=== PATIENT | female | born 1980 | race Caucasian/White ===

== ENCOUNTER → 2021-01-09 | Outpatient (CLI) | payer OTHER ==
[2021-01-09 13:45] LABS: BASOPHILS ABSOLUTE AUTO 0.05 K/mm3 (0.00-0.23); BASOPHILS PERCENT AUTO 1 % (0-2); EOSINOPHILS ABSOLUTE AUTO 0.35 K/mm3 (0.00-0.68); EOSINOPHILS PERCENT AUTO 5 % (0-6); Hematocrit 41.2 % (33.0-51.0); Hemoglobin 13.8 g/dL (11.5-16.0); IMMATURE GRAN ABSOLUTE AUTO 0.01 K/mm3 (0.00-0.10); IMMATURE GRAN PERCENT AUTO 0 % (0-1); LYMPHOCYTES ABSOLUTE AUTO 2.57 K/mm3 (0.84-5.20); LYMPHOCYTES PERCENT AUTO 37 % (21-46); MONOCYTES ABSOLUTE AUTO 0.46 K/mm3 (0.16-1.47); MONOCYTES PERCENT AUTO 7 % (4-13); Mean Corpuscular HGB 29.6 pg (26.0-34.0); Mean Corpuscular HGB Conc 33.5 g/dL (31.5-36.5); Mean Corpuscular Volume 88 fL (80-100); Mean Platelet Volume 9.9 fL (9.1-12.4); NEUTROPHILS ABSOLUTE AUTO 3.61 K/mm3 (1.96-9.15); NEUTROPHILS PERCENT AUTO 51 % (41-73); Platelet Count 293 K/mm3 (150-400); RDW Coefficient Variation 12.5 % (11.7-14.2); RDW Standard Deviation 40.6 fL (35.1-46.3); Red Blood Cell Count 4.67 M/mm3 (3.80-5.20); White Blood Cell Count 7.05 K/mm3 (4.00-11.30)
[2021-01-09 14:08] LABS: Alanine Aminotransfer (ALT/SGP 23 U/L (12-78); Albumin, Blood 3.6 g/dL (3.4-5.0); Albumin/Globulin Ratio 0.9 (0.8-1.8); Alk Phos 83 U/L (50-136); Anion Gap 7 mmol/L (6-16); Aspartate Aminotrans (AST/SGOT 18 U/L (12-37); Bilirubin, Total 0.4 mg/dL (0.1-1.0); Blood Urea Nitrogen 8 mg/dL (8-24); Bun/Creatinine Ratio 10.1 (12.0-20.0); CO2, Blood 26 mmol/L (21-32); Calcium, Blood 8.7 mg/dL (8.5-10.1); Chloride, Blood 108 mmol/L (98-108); Creatinine, Blood 0.79 mg/dL (0.40-1.00); Globulin, Blood 3.8 g/dL (2.2-4.0); Glomerular Filtration Rate >60 (60-); Glucose, Blood 87 mg/dL (70-99); Potassium, Blood 4.1 mmol/L (3.5-5.5); Sodium, Blood 141 mmol/L (136-145); Total Protein, Blood 7.4 g/dL (6.4-8.2)
[2021-01-09 14:33] LABS: CHOL/HDL RATIO 2.3; Cholesterol 159 mg/dL (50-200); HDL Cholesterol 68 mg/dL (>39); LDL/HDL RATIO 1.2; Low Density Lipoprotein Chol 84 mg/dL (0-110); Triglycerides 37 mg/dL (30-140); Very Low Density Lipoprot Chol 7 mg/dL (6-28)
== END ==
LOC: LAB 08:30 → LAB SHORT 08:30
PROVIDERS: Nurse Practitioner
DX: Z13.6 Encounter for screening for cardiovascular disorders (principal); E03.9 Hypothyroidism, unspecified
CPT/HCPCS: 80053; 80061; 84443; 85025

== ENCOUNTER → 2022-04-25 | Outpatient (CLI) | payer SELFPAY | END | disposition home or self-care (01) | LOC: LAB 16:45 → LAB SHORT 16:45 | DX: R19.7 Diarrhea, unspecified (principal) | CPT/HCPCS: 85651 ==

== ENCOUNTER → 2022-05-20 | Outpatient (CLI) | payer BC | END | disposition home or self-care (01) | LOC: LAB 17:36 → LAB SHORT 17:36 | PROVIDERS: Hospitalist | DX: Z12.4 Encounter for screening for malignant neoplasm of cervix (principal) | CPT/HCPCS: G0145 ==

== ENCOUNTER → 2022-11-08 | Outpatient (CLI) | payer BC ==
[~2022-11-08] MED LIST: OMEP20ER; Synthroid200 MCG; [UNRECOGNIZED DRUG - OTHER]
[2022-11-08 19:01] LABS: Campylobacter Sp Not Detected (NOT DETECT); Enteroaggregative E. coli-EAEC Not Detected (NOT DETECT); Enterotoxigenic E. coli-ETEC Not Detected (NOT DETECT); Plesiomonas Shigelloides Not Detected (NOT DETECT); Salmonella Sp Not Detected (NOT DETECT); Vibrio Cholerae Not Detected (NOT DETECT); Vibrio Sp Not Detected (NOT DETECT); Yersinia Enterocolitica Not Detected (NOT DETECT)
[2022-11-08 19:02] LABS: Adenovirus F 40/41 Not Detected (NOT DETECT); Astrovirus Not Detected (NOT DETECT); Cryptosporidium Not Detected (NOT DETECT); Cyclospora Cayetanensis Not Detected (NOT DETECT); E. Coli O157 Not Detected (NOT DETECT); Entamoeba Histolytica Not Detected (NOT DETECT); Enteropathogenic E. coli-EPEC Not Detected (NOT DETECT); Giardia Lamblia Not Detected (NOT DETECT); Norovirus GI/GII Not Detected (NOT DETECT); Rotavirus A Not Detected (NOT DETECT); Sapovirus Not Detected (NOT DETECT); Shiga Toxin-prod E. coli-STEC Not Detected (NOT DETECT); Shigella/Enteroin E. coli-EIEC Not Detected (NOT DETECT)
== END | disposition home or self-care (01) ==
LOC: LAB 09:00 → LAB SHORT 09:00
PROVIDERS: Physician Assistant Medical
DX: R19.7 Diarrhea, unspecified (principal)
CPT/HCPCS: 87507

== ENCOUNTER → 2023-08-07 | Outpatient (CLI) | payer BC ==
[2023-08-07 15:07] LABS: CHOL/HDL RATIO 2.9; Cholesterol 196 mg/dL (50-200); Free Thyroxine 1.09 ng/dL (0.70-1.60); HDL Cholesterol 68 mg/dL (>39); LDL/HDL RATIO 1.7; Low Density Lipoprotein Chol 116 mg/dL (0-110); Triglycerides 58 mg/dL (30-160); Very Low Density Lipoprot Chol 11 mg/dL (6-32)
== END | disposition home or self-care (01) ==
LOC: LAB SHORT 08:44
PROVIDERS: Hospitalist
DX: Z13.220 Encounter for screening for lipoid disorders (principal); E03.9 Hypothyroidism, unspecified
CPT/HCPCS: 80061; 84439; 84443

== ENCOUNTER 2024-06-27 06:55 | Observation (INO) | payer BC ==
[2024-06-27] VITALS (11 sets, daily range): BP systolic 110–144; BP diastolic 71–100
[~2024-06-27] VITALS: Ht 170.2 cm; Wt 96.1 kg
[2024-06-27] MEDS ORDERED: Ondansetron HCl 2 MG / ML 2ML Vial IV ONE (07:15)
[2024-06-27] MEDS ORDERED: Ketorolac Tromethamine 30mg Vial IV ONE (07:15)
[2024-06-27 07:44] LABS: BASOPHILS ABSOLUTE AUTO 0.05 K/mm3 (0.00-0.23); BASOPHILS PERCENT AUTO 1 % (0-2); EOSINOPHILS ABSOLUTE AUTO 0.45 K/mm3 (0.00-0.68); EOSINOPHILS PERCENT AUTO 4 % (0-6); Hematocrit 39.6 % (33.0-51.0); Hemoglobin 13.8 g/dL (11.5-16.0); IMMATURE GRAN ABSOLUTE AUTO 0.03 K/mm3 (0.00-0.10); IMMATURE GRAN PERCENT AUTO 0 % (0-1); LYMPHOCYTES ABSOLUTE AUTO 2.87 K/mm3 (0.84-5.20); LYMPHOCYTES PERCENT AUTO 28 % (21-46); MONOCYTES PERCENT AUTO 5 % (4-13); Mean Corpuscular HGB 29.6 pg (26.0-34.0); Mean Corpuscular HGB Conc 34.8 g/dL (31.5-36.5); Mean Corpuscular Volume 85 fL (80-100); Mean Platelet Volume 9.2 fL (9.1-12.4); NEUTROPHILS ABSOLUTE AUTO 6.27 K/mm3 (1.96-9.15); NEUTROPHILS PERCENT AUTO 62 % (41-73); Platelet Count 277 K/mm3 (150-400); RDW Coefficient Variation 13.1 % (11.7-14.2); RDW Standard Deviation 40.3 fL (35.1-46.3); Red Blood Cell Count 4.66 M/mm3 (3.80-5.20); White Blood Cell Count 10.17 K/mm3 (4.00-11.30)
[2024-06-27 08:04] LABS: Albumin, Blood 3.6 g/dL (3.4-5.0); Albumin/Globulin Ratio 0.9 (0.8-1.8); Bilirubin, Total 0.3 mg/dL (0.1-1.0); Calcium, Blood 9.2 mg/dL (8.5-10.1); Creatinine, Blood 0.67 mg/dL (0.40-1.00); Globulin, Blood 3.8 g/dL (2.2-4.0); Total Protein, Blood 7.4 g/dL (6.4-8.2)
[2024-06-27 08:32] LABS: Source, Urine Clean Catch
[2024-06-27] MEDS ORDERED: MetroNIDAZOLE 500MG/NS 100 ml 100 ML IV ONE (08:35)
[2024-06-27] MEDS ORDERED: NS 1,000 ML IV SCH (08:35)
[2024-06-27] MEDS ORDERED: CefTRIAXone Sodium 1,000 MG in NS 100 ML IV ONE (08:35)
[2024-06-27 08:39] LABS: Appearance, Urine Clear (Clear); Bilirubin, Urine Neg (Neg); Blood, Urine 1+ (Neg); Color, Urine Yellow (P-Yellow); Glucose Qualitative, Urine Neg (Neg); Ketones, Urine Neg (Neg); Leukocyte Esterase, Urine Neg (Neg); Nitrite, Urine Neg (Neg); Protein, Urine Neg (Neg); Urobilinogen, Urine NORM (Normal)
[2024-06-27 08:52] LABS: Bacteria Few /hpf; Mucus Light (0-Heavy); Red Blood Cells, Urine 0-2 /hpf (0-2); Squamous Epithelial Cells Mod /hpf (Few); White Blood Cells, Urine 0-2 /hpf (0-5)
--- NOTE | 2024-06-27 15:28 | NUR ---
ARRIVAL TO 215 PT BROUGHT UP TO ROOM 215 FROM THE ER AMBULATORY. PT STILL WEARING REGULAR CLOTHES, DISCUSSED PREP FOR SURGERY AND PROVIDED HER A GOWN TO CHANGE INTO, BASELINE VITALS OBTAINED, CHACHO CONSENT SIGNED, DISCUSSED PLAN OF CARE WITH SURGERY AND RECOVERY. PT REPORTS WANTING TO GO HOME TODAY IF AT ALL POSSIBLE. PT ALSO REPORTS HAVING A PREFERENCE FOR SURGICAL GLUE TO CLOSE OVER HER LAP SITES POST OP.
[2024-06-27] MEDS ORDERED: CeFAZolin Sodium 2,000 MG in NS 100 ML IV SCH (16:35)
--- NOTE | 2024-06-27 16:56 | NUR ---
BETA HCG TEST NOT DONE IN ER, DISCUSED THIS WITH THE PATIENT, COLLECTED URINE SAMPLE AND SENT TO LAB FOR TESTING.
[2024-06-27] MEDS ORDERED: Bupivacaine 0.5% HCl 5 MG/ML 30MLVIAL ONE (17:36)
--- NOTE | 2024-06-27 17:39 | NUR ---
PT TRANSFERED TO PACU VIA GURNEY FROM RM 215 AT 1725. PLEASANT & COOPERATIVE. REFUSED WARM BLANKET OFFER. DENIES PAIN/NAUSEA. AFEBRILE/VSS. SURICAL PACK COMPLETE. PAS SLEEVES/SURGICAL HAT/BP CUFF PLACED. LR AT TKO. NO COMPLAINTS. RESTING QUIETLY.
[2024-06-27] MEDS ORDERED: FentaNYL Citrate 50 MCG/ML 2 ML Injection ONE (17:41)
[2024-06-27] MEDS ORDERED: propofoL 20 ML IV ONE (17:41)
--- NOTE | 2024-06-27 17:43 | NUR ---
1730: LISSETTE BAHENA AT [facility] SPEAKING TO PT. CONSENTS WERE SIGNED. APPEARS COMFORTABLE AND RELAXED. NO COMPLAINTS AT THIS TIME.
--- NOTE | 2024-06-27 17:44 | NUR ---
1740: PT TO OR 2 VIA MARK IN STABLE CONDITION.
[2024-06-27] MEDS ORDERED: Dexamethasone Sod Phos 10 MG/ML 1ML VIAL ONE (17:47)
[2024-06-27] MEDS ORDERED: Ondansetron HCl 2 MG / ML 2ML Vial ONE (17:47)
[2024-06-27] MEDS ORDERED: Ketorolac Tromethamine 30mg Vial ONE ×2 (17:48→17:49)
[2024-06-27] MEDS ORDERED: DiphenhydrAMINE HCl 50 MG/ML 1ML Vial ONE (17:48)
[2024-06-27] MEDS ORDERED: FentaNYL Citrate 50 MCG/ML 2 ML Injection IV PRN ×2 (18:00→18:05)
[2024-06-27] MEDS ORDERED: HYDROmorphone HCl/Pf 1MG SYR IV PRN (18:00)
[2024-06-27] MEDS ORDERED: Morphine Sulfate 4 MG/1 ML Injection IV PRN (18:05)
[2024-06-27] MEDS ORDERED: Ondansetron HCl 2 MG / ML 2ML Vial IV PRN (18:05)
[2024-06-27] MEDS ORDERED: Albuterol 2.5 MG/3 ML VIAL INH PRN (18:05)
[2024-06-27] MEDS ORDERED: Lidocaine HCL 1% 10 ML MDV XX ONE (18:10)
[2024-06-27] MEDS ORDERED: Midazolam HCl 1MG / ML 2ML Vial IV SCH (18:10)
[2024-06-27] MEDS ORDERED: Sugammadex Sodium 200 MG/2ML SDV (100 MG/ML) ONE (18:15)
--- NOTE | 2024-06-27 19:17 | NUR ---
SHIFT SUMMARY ADMITTED FOR ACUTE HUNTER, A/OX4, VSS, NO PO GIVEN DUE TO SURGERY, TAKEN TO SURGERY AND SHE WAS IN PACU AT THE END OF THIS SHIFT. REPORT GIVEN TO KRISTOFER BUTT.
--- NOTE | 2024-06-27 20:14 | NUR ---
1914- pt arrived to room in no discomfort. lap sites c/d/i. pt denies pain or nausea. pt has voided and is tolerating po intake. pt ambulating well. pt states she would like to discharge this evening. pt educated on not having pain meds available due to not filling prescription tonight. pt educated to come to ER if pain becomes intolerable, pt reports understanding.
--- NOTE | 2024-06-27 20:48 | NUR ---
DISCHARGE PATIENT AND EDUCATED WITH DISCHARGE INSTRUCTIONS. ALL QUESTIONS AND CONCERNS ADDRESSED.PT VERBALIZED UNDERSTANDING. SENT WITH MEDICATION SCRIPT. IV REMOVED.
== END 2024-06-27 20:40 | disposition home or self-care (01) ==
LOC: ER 06:55 → SURS 06:56
PROVIDERS: Emergency Medicine; ADMIT Surgery
PROC: 0FT44ZZ Resection of Gallbladder, Percutaneous Endoscopic Approach (ICD-10-PCS; principal; 2024-06-27 13:45)
DX: K80.00 Calculus of gallbladder with acute cholecystitis without obstruction (principal); E03.9 Hypothyroidism, unspecified; K21.9 Gastro-esophageal reflux disease without esophagitis; F17.290 Nicotine dependence, other tobacco product, uncomplicated; Z79.890 Hormone replacement therapy; Z79.899 Other long term (current) drug therapy
CPT/HCPCS: 76705; 80053; 81001; 81025; 83690; 85025; 88304; 96365; 96375; 99285-25; G0378; J0690; J0696; J1100; J1200; J1885; J2405; J2704; J3010; J7030